=== PATIENT | female | born 1930 | race Caucasian/White ===

== ENCOUNTER → 2018-01-05 07:08 | Outpatient (CLI) | payer MEDICARE ==
[2015-09-20 10:34] VITALS: BMI 29.4
[~2018-01-05 07:08] MED LIST: ANASTROZOLE1 MG PO; ASPIRIN EC81 MG PO; CATAPRES0.1 MG; CO Q-10200 MG PO; DEXILANT60 MG PO; HYDROCODONE-APA1 TAB PO; HYZAAR 100-25 T1 TAB PO; ISOSORBIDE MONO60 M1 PO; LEVOTHROID100 MCG PO; METOPROLOL TART50 MG PO; MULTIPLE VITAMI1 TA1 PO; NITROSTAT0.4 MG SL; NORVASC10 MG PO; PEPCID40 MG PO; PERCOCET 5-3251 TAB PO; PHENERGAN25 MG RC; PRILOSEC20 MG PO; PROBIOTIC1 EAC1 PO; VITAMIN B-12100 MCG PO; ZANAFLEX4 MG PO; ZOFRAN ODT4 MG/UDTAB PO
== END | disposition home or self-care (01) ==
LOC: D.RAD 07:08
DX: R10.13 Epigastric pain (principal); R12 Heartburn; R14.0 Abdominal distension (gaseous)

== ENCOUNTER → 2018-01-12 10:45 | Outpatient (CLI) | payer MEDICARE ==
[2015-09-20 10:34] VITALS: BMI 29.4
== END | disposition home or self-care (01) ==
LOC: D.NM 10:45
DX: R10.13 Epigastric pain (principal); R12 Heartburn; R14.0 Abdominal distension (gaseous)

== ENCOUNTER → 2018-08-09 08:15 | Outpatient (CLI) | payer MEDICARE ==
[2015-09-20 10:34] VITALS: BMI 29.4
== END | disposition home or self-care (01) ==
LOC: D.US 08:15 → D.NM 09:30
DX: K21.9 Gastro-esophageal reflux disease without esophagitis (principal); R14.2 Eructation